=== PATIENT | male | born 1995 | race Two or more races ===

== ENCOUNTER 2018-04-23 12:28 | Emergency (ER) | payer OTHER ==
[~2018-04-23] VITALS: Ht 170.2 cm; Wt 88.5 kg
[2018-04-23] MEDS ORDERED: BICILLIN-LA 2,400,000 UNITS/4 ML IM ONE (13:30)
--- NOTE | 2018-04-23 13:32 | NUR ---
Meds ordered from pharmacy
--- NOTE | 2018-04-23 13:50 | NUR ---
Pt reports pos RPR test result, "I met someone Im interested in and just wanted to get everything checked before we started hanging out" PT denies any s/s upon assesment. Medicated per emar
[2018-04-23 13:52] VITALS: BP 142/84
== END 2018-04-23 14:00 | disposition home or self-care (01) ==
LOC: ED 13:30
DX: R76.8 Other specified abnormal immunological findings in serum (principal)
CPT/HCPCS: 96372; 99283; J0561